=== PATIENT | female | born 1990 | race African-American/Black ===

== ENCOUNTER 2022-06-15 05:05 | Emergency (ER) | payer MEDICAID, SELFPAY ==
[2022-06-15 05:06] VITALS: BP 149/101; PULSE 98; RESP 18; TEMP 36.9; O2SAT 100
[2022-06-15] MEDS: LIDO 1%/EPINEPHRINE 1:100,000 20 ML VIAL INFILTRATE (05:46)
--- NOTE | 2022-06-15 05:46 | ED.GENADULT ---
HPI - General Adult General Chief complaint: Skin/Abscess/Foreign Body Stated complaint: tooth and buttock pain Time Seen by Provider: 06/15/22 05:12 Source: RN notes reviewed History of Present Illness HPI narrative: Patient presents emergency department from home for dental pain and buttocks abscess. Patient states she is had pain in her left lower molar intermittently since December states she has been unable to get into see a dentist states she has been taking medications at home for the pain but does not take anything this evening patient states that she noticed approximately 3 days ago she had an area of swelling on her buttocks just to the left of the midline over the superior buttocks she states is painful to sit on the area she denies any drainage from the area she denies any fevers or chills abdominal pain or any other symptoms Related Data Allergies Allergy/AdvReac Type Severity Reaction Status Date / Time No Known Allergies Allergy Verified 06/15/22 05:19 Review of Systems Review of Systems: Gen.: Denies fevers or chills ENT: HPI Respiratory: Denies shortness of breath CV: Denies chest pain GI: Denies abdominal pain nausea, emesis Musculoskeletal: Denies back pain or muscle pain Neuro: Denies numbness, tingling, weakness or focal weakness Skin: See HPI Except as documented, all other systems reviewed and negative PMFSH Past Medical History Medical History (Updated 06/15/22 @ 05:51 by Carlos Perdomo DO) Patient denies significant medical history Social History Social History (Updated 06/15/22 @ 05:47 by Carlos Perdomo DO) Smoking status: Never smoker Exam Narrative: APPEARANCE: No acute distress, nontoxic, resting in bed HEENT: Normocephalic, atraumatic, TMs clear bilaterally, nares patent, oral mucosa moist, airway patent, tooth #19 is tender to palpation and carious no erythema of the gum no swelling of the face RESPIRATORY: No respiratory distress MUSCULOSKELETAl: Moves all extremities. NEURO: Awake and alert. Following commands, speech normal, no focal deficits SKIN:: Warm, dry. Just to the right of the superior middle buttocks there is a area of fluctuance and erythema with no active drainage PSYCHIATRIC: Normal affect/mood Course Course Emergency Course: Discussed with patient results of workup and diagnosis. Discussed need for follow-up with primary care, proper use of medication, and reasons to return to the emergency department. Patient understands and agrees to current treatment plan Vital Signs Vital signs: Vital Signs Temperature 98.4 F 06/15/22 05:06 Pulse Rate 98 06/15/22 05:06 Respiratory Rate 18 06/15/22 05:06 Blood Pressure 149/101 H 06/15/22 05:06 Pulse Oximetry 100 06/15/22 05:06 Oxygen Delivery Room Air 06/15/22 05:06 Temperature 98.4 F 06/15/22 05:06 Pulse Rate 98 06/15/22 05:06 Respiratory Rate 18 06/15/22 05:06 Blood Pressure 149/101 H 06/15/22 05:06 Pulse Oximetry 100 06/15/22 05:06 Oxygen Delivery Room Air 06/15/22 05:06 Procedures Abscess I/D other: Abcess I&D Additional Comments: Verbal consent was obtained prior to procedure. The abscess was cleaned with Betadine and lidocaine 1% with epi was used for anesthesia. The abscess was incised with an 11 blade. There was return of approximately 7-8 mL of thick purulent drainage. Curved hemostats were used to break up loculations, the wound was irrigated with normal saline. Following a sterile dressing was applied. Patient tolerated the procedure well Medical Decision Making Vital Signs Vital Signs: Vital Signs Temperature 98.4 F 06/15/22 05:06 Pulse Rate 98 06/15/22 05:06 Respiratory Rate 18 06/15/22 05:06 Blood Pressure 149/101 H 06/15/22 05:06 Pulse Oximetry 100 06/15/22 05:06 Oxygen Delivery Room Air 06/15/22 05:06 Temperature 98.4 F 06/15/22 05:06 Pulse Rate 98 06/15/22 05:06 Respiratory Rate 18 06/15/22 05:06 Blood Pr
[2022-06-15] MEDS: CLINDAMYCIN HCL 150 MG CAP 450 MG PO (05:52)
[2022-06-15] MEDS: IBUPROFEN 600 MG TABLET PO (05:52)
[2022-06-15 06:07] VITALS: BP 149/94; PULSE 97; RESP 20; O2SAT 100
== END 2022-06-15 06:08 | disposition home or self-care (01) ==
PROVIDERS: Emergency Provider Emergency Medicine
DX: K02.9 Dental caries, unspecified (principal); L02.31 Cutaneous abscess of buttock
CPT/HCPCS: 10060; 10061; 99283; A9270

== ENCOUNTER 2022-06-24 12:44 | Emergency (ER) | payer MEDICAID, SELFPAY ==
[2022-06-24 13:04] VITALS: BP 152/97; PULSE 74; RESP 16; TEMP 36.6; O2SAT 100
--- NOTE | 2022-06-24 14:24 | ED.DENTAL ---
HPI - Dental/Oral General Chief complaint: Dental/Oral Stated complaint: tooth pain Time Seen by Provider: 06/24/22 14:15 History of Present Illness HPI Narrative: 32-year-old female here for evaluation of left upper dental pain for the past several months. Patient states that she has follow-up with a dentist and has an appointment scheduled in June to have the tooth pulled. She was seen in the emergency department 2 weeks ago for abscess drainage, she was prescribed ibuprofen and clindamycin and noted that this improved her pain greatly. States that she ran out of the ibuprofen is requesting refill. Denies any trismus, difficulty swallowing, sore throat, fevers, chills. Related Data Allergies Allergy/AdvReac Type Severity Reaction Status Date / Time No Known Allergies Allergy Verified 06/15/22 05:19 Review of Systems Review of Systems: Gen.: Denies fevers or chills Eyes: Denies eye pain or visual change ENT: Reports dental pain Respiratory: Denies shortness of breath or cough CV: Denies chest pain or palpitations GI: Denies abdominal pain nausea, emesis or diarrhea denies burning, urgency, frequency or hematuria Musculoskeletal: Denies back pain or muscle pain Neuro: Denies numbness, tingling, weakness or focal weakness Skin: Denies rash Except as documented, all other systems reviewed and negative PMFSH Past Medical History Medical History Patient denies significant medical history Social History Social History (Updated 06/15/22 @ 05:47 by Carlos Perdomo DO) Smoking status: Never smoker Exam Narrative: Gen: Alert, oriented, no acute distress Eyes: EOMI, no icterus Pulm: Respirations even and unlabored, symmetric thorax expansion, no audible stridor or visible cyanosis ENT: tooth number 16 and 1 have caries, no periapical abscess noted, no trismus, tolerating secretions CV: Regular rate per telemetry GI: No distension, no voluntary/involuntary guarding Neuro: AOx4, moves all extremities without apparent difficulty or weakness, follows commands Skin: No jaundice, no visible bruising, rashes, lesions or wounds on exposed skin Psych: Normal mood/affect, insight/judgement good, adequate fund of knowledge, recent/remote memory intact Course Vital Signs Vital signs: Vital Signs Temperature 97.9 F 06/24/22 13:04 Pulse Rate 74 06/24/22 13:04 Respiratory Rate 16 06/24/22 13:04 Blood Pressure 152/97 H 06/24/22 13:04 Pulse Oximetry 100 06/24/22 13:04 Oxygen Delivery Room Air 06/24/22 13:04 Temperature 97.9 F 06/24/22 13:04 Pulse Rate 74 06/24/22 13:04 Respiratory Rate 16 06/24/22 13:04 Blood Pressure 152/97 H 06/24/22 13:04 Pulse Oximetry 100 06/24/22 13:04 Oxygen Delivery Room Air 06/24/22 13:04 MDM - Dental/Oral MDM Narrative Medical decision making narrative: 32-year-old female here for evaluation of dental pain over the past several months, based on history and exam pain is likely due to suspected dental josr. Patient not immunosuppressed, afebrile and well appearing with patent airway, have low suspicion for deep space infection or any concern for airway compromise. No evidence of tooth fracture, avulsion, or bleeding socket. No evidence of RPA, POSTING SPECIALIST, David?s angina, periapical abscess. Instructed patient to continue to treat pain with ibuprofen/acetaminophen until they see a dentist. Defer ABX for dental pain alone with no overt evidence of infection. Patient discharged home and will follow up with dentist. Discussed return precautions for odontogenic infections and other dental pain emergencies. Discharge Plan Discharge Clinical Impression: Toothache Patient Disposition: Home, Self-Care Condition: Stable Instructions: Antibiotic Form, Toothache (ED) Additional Instructions: Your dental pain will need to be ultimately managed with a dentist. Alternate between Tylenol and ibupro
[2022-06-24] MEDS: ACETAMINOPHEN 325 MG TABLET 650 MG PO (14:48)
[2022-06-24] MEDS: KETOROLAC 30 MG/ML VIAL (*BKC) IM (14:49)
== END 2022-06-24 15:03 | disposition home or self-care (01) ==
PROVIDERS: Emergency Provider Emergency Medicine
DX: K08.89 Other specified disorders of teeth and supporting structures (principal)
CPT/HCPCS: 96372; 99283; A9270; J1885

== ENCOUNTER 2023-05-10 00:12 | Emergency (ER) | payer BC, SELFPAY ==
[2023-05-10 00:16] VITALS: BP 160/98; PULSE 100; RESP 14; TEMP 36.9; O2SAT 99
--- NOTE | 2023-05-10 01:16 | ED.DENTAL ---
HPI - Dental/Oral General Chief complaint: Dental/Oral <Anayeli Sylvester PA-C - Last Filed: 05/10/23 02:10> Stated complaint: L lower jaw pain <Anayeli Sylvester PA-C - Last Filed: 05/10/23 02:10> Time Seen by Provider: 05/10/23 00:49 <Anayeli Sylvester PA-C - Last Filed: 05/10/23 02:10> History of Present Illness HPI Narrative: 33-year-old female reports for evaluation of dental pain to her left lower molar since yesterday. Patient reports she scheduled an appointment with her dentist in June, but came to the ED due to pain. She reports taking ibuprofen approximately 8 hours ago with some relief. She denies difficulty breathing, sore throat, fever, difficulty tolerating secretions, nausea or vomiting, trismus. <Anayeli Sylvetser PA-C - Last Filed: 05/10/23 02:10> Related Data Allergies/adverse reactions: Allergies Allergy/AdvReac Type Severity Reaction Status Date / Time No Known Allergies Allergy Verified 05/10/23 00:19 <Anayeli Sylvester PA-C - Last Filed: 05/10/23 02:10> Review of Systems Review of Systems: CONSTITUTIONAL: Denies fever, chills EYES: Denies visual changes, redness, or discharge. ENT: See HPI CARDIOVASCULAR: Denies chest pain, palpitations, or edema. RESPIRATORY: Denies cough or dyspnea. GASTROINTESTINAL: Denies abdominal pain, nausea, vomiting, or diarrhea. GENITOURINARY: Denies dysuria or hematuria. SKIN: Denies rash or itching. MUSCULOSKELETAL: Denies back pain, joint pain, or myalgia. NEUROLOGIC: Denies headache, numbness, dizziness, or weakness. PSYCHIATRIC: Denies anxiety or depression. <Anayeli Sylvester PA-C - Last Filed: 05/10/23 02:10> PMFSH Past Medical History Medical History: Medical History Patient denies significant medical history <Anayeli Sylvester PA-C - Last Filed: 05/10/23 02:10> Social History Social History: Social History Smoking status: Never smoker <Anayeli Sylvester PA-C - Last Filed: 05/10/23 02:10> Exam Narrative: GENERAL: Well-appearing, in no acute distress. HEAD: Normocephalic EYES: PERRLA ENT: Nares clear. Mucous membranes moist. Oropharynx without tonsillar hypertrophy exudate. Bilateral TMs are lindo nonbulging. No trismus. Tenderness to the left lower gingiva without evidence of erythema, edema, periapical abscess. No areas of fluctuance, cellulitis, induration, erythema or warmth. No caries. Submandibular swelling. Floor mouth is soft without crepitus. She is tolerating her secretions without difficulty. NECK: Supple. CHEST: No respiratory distress. Clear to auscultation, no adventitious breath sounds. HEART: Regular rate and rhythm. No murmur heard. Normal peripheral pulses. EXTREMITIES: Normal range of motion. No edema. SKIN: Warm, dry, no rash. NEURO: No focal deficits. Alert and oriented x3. PSYCH: Normal mood and affect. <Anayeli Sylvester PA-C - Last Filed: 05/10/23 02:10> Course SERVICE EMPLOYEE/PA Physician Supervision This is a was performed by both a physician and an APC. I performed all aspects of the MDM as documented w/ the following additions: 33-year-old presenting with dental pain. Given symptomatic treatment and dental follow-up.All questions answered. Patient in agreement w/ disposition. <Gallo Evans MD - Last Filed: 05/16/23 19:12> Vital Signs Vital signs: Vital Signs Temperature 98.4 F 05/10/23 00:16 Pulse Rate 100 05/10/23 00:16 Respiratory Rate 14 05/10/23 00:16 Blood Pressure 160/98 H 05/10/23 00:16 Pulse Oximetry 99 05/10/23 00:16 Temperature 97.9 F 05/10/23 02:40 Pulse Rate 68 05/10/23 02:40 Respiratory Rate 16 05/10/23 02:40 Blood Pressure 150/92 H 05/10/23 02:40 Pulse Oximetry 98 05/10/23 02:40 <Anayeli Sylvester PA-C - Last Filed: 05/10/23 02:10> Vital Signs Temperature 9
[2023-05-10] MEDS: AMOXICILLIN/CLAVULANATE K 875-125 MG TAB 1 TABLET PO (01:50)
--- NOTE | 2023-05-10 01:50 | PC.NURSE ---
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 Pt stated No one to come get them and give her a ride home. ERP notified .
[2023-05-10 02:04] VITALS: BP 150/92; PULSE 68; RESP 16; TEMP 37.2; O2SAT 98
[2023-05-10] MEDS: KETOROLAC 30 MG/ML VIAL (*BKC) IM (02:24)
[2023-05-10 02:40] VITALS: BP 150/92; PULSE 68; RESP 16; TEMP 36.6; O2SAT 98
== END 2023-05-10 02:41 | disposition home or self-care (01) ==
PROVIDERS: Emergency Provider Physician Assistant
DX: K08.89 Other specified disorders of teeth and supporting structures (principal)
CPT/HCPCS: 96372; 99283; A9270; J1885

== ENCOUNTER 2024-07-07 10:42 | Emergency (ER) | payer OTHER, BC, SELFPAY ==
--- NOTE | ~2024-07-07 | XR_ITS ---
EXAMINATION: XR foot LT min 3V DATE: 07/07/2024 11:11 INDICATION: Dorsal left foot pain post fall TECHNIQUE: Dorsoplantar, two oblique and lateral views of the left foot were obtained. COMPARISON: None. FINDINGS: Alignment is normal. No fracture. Mild osteoarthritis at the second tarsal metatarsal joint. Minimal osteoarthritis at a few of the additional joints in the mid and forefoot. No erosions. Small to moder ate-sized Achilles and plantar calcaneal spurs. Additional small enthesopathic ossicle at the distal Achilles tendon. Soft tissues are otherwise unremarkable. IMPRESSION: 1. 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 No acute osseous abnorm ality. Reviewed, dictated and finalized at location B. IMPRESSION: 1. 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 N o acute osseous abnormality.
[2024-07-07 10:45] VITALS: BP 143/104; PULSE 81; RESP 14; TEMP 36.4; O2SAT 99
--- NOTE | 2024-07-07 11:25 | ED.LOWEXIN ---
HPI - Extremity Injury (Lower) General Chief Complaint: Extremity Injury, Lower Stated Complaint: left foot injury Time Seen by Provider: 07/07/24 11:12 Source: patient Mode of arrival: ambulatory Limitations: no limitations History of Present Illness HPI Narrative: This is a 34-year-old female that presents to the emergency department for left foot pain after an injury earlier this morning. Reports she was walking down the steps to take out the trash. She missed the last couple of steps. She caught herself before falling. Since she has had left foot pain that is worse with weight-bearing. Relieved with rest. She did not hit her head or lose consciousness. Denies decreased range of motion or numbness. Related Data Allergies Allergy/AdvReac Type Severity Reaction Status Date / Time acetaminophen Allergy Nausea Verified 07/07/24 10:48 [From Excedrin Migraine] aspirin Allergy Nausea Verified 07/07/24 10:48 [From Excedrin Migraine] caffeine Allergy Nausea Verified 07/07/24 10:48 [From Excedrin Migraine] Review of Systems Review of Systems: CONSTITUTIONAL: Denies fever MUSCULOSKELETAL: Reports joint pain, and myalgia. NEUROLOGIC: Denies numbness, or weakness. All systems reviewed & are unremarkable except as noted in HPI and below PMFSH Past Medical History Medical History Patient denies significant medical history Social History Social History Smoking status: Never smoker Exam Narrative: GENERAL: Well-appearing, well-nourished, and in no acute distress. HEAD: Normocephalic, atraumatic. EYES: EOMI. EXTREMITIES: Normal range of motion. No edema or obvious deformity. Normal DP pulse. Normal sensation SKIN: Warm, dry, no rash. NEURO: No focal deficits. Alert and oriented x3. PSYCH: Normal mood and affect Course Course Emergency Course: patient updated on her workup and agrees with plan of care Vital Signs Vital signs: Vital Signs Temperature 97.6 F 07/07/24 10:45 Pulse Rate 81 07/07/24 10:45 Respiratory Rate 14 07/07/24 10:45 Blood Pressure 143/104 H 07/07/24 10:45 Pulse Oximetry 99 07/07/24 10:45 Oxygen Delivery Room Air 07/07/24 10:45 Temperature 97.6 F 07/07/24 10:45 Pulse Rate 81 07/07/24 10:45 Respiratory Rate 14 07/07/24 10:45 Blood Pressure 143/104 H 07/07/24 10:45 Pulse Oximetry 99 07/07/24 10:45 Oxygen Delivery Room Air 07/07/24 10:45 MDM - Extremity Injury (Lower) MDM Narrative Medical decision making narrative: patient presents to the emergency department for left foot pain after an injury just prior to arrival. She is neurovascularly intact. Left foot x-rays without acute osseous abnormalities. Patient placed in Pato wrap and given crutches. Instructed on further care of sprain. She is to follow up with primary provider. She was given warnings to return to the ER Differential Diagnosis Differential diagnosis: Likely ankle sprain and strain, ankle fracture and other ( foot fracture, foot sprain) Imaging Data Radiologist's impression: ITS Impressions Foot X-Ray 07/07/24 11:12 IMPRESSION: 1. 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 No acute osseous abnormality. Critical Care Time Critical Care Time Critical Care Time: No Discharge Plan Discharge Clinical Impression: Foot sprain Qualifiers: Encounter type: initial encounter Laterality: left Qualified Code(s): S93.602A - Unspecified sprain of left foot, initial encounter Patient Disposition: Home, Self-Care Condition: Stable Instructions: Foot Sprain (ED) Additional Instructions: Return to the ER if you experience fever, redness and swelling of your extremity, numbness or any other symptoms that are concerning to you Wear PATO wrap and use crutches. No weight on the affected
== END 2024-07-07 11:40 | disposition home or self-care (01) ==
PROVIDERS: Emergency Provider Physician Assistant
DX: S93.602A Unspecified sprain of left foot, initial encounter (principal); X50.0XXA Overexertion from strenuous movement or load, initial encounter
CPT/HCPCS: 73630; 99283